=== PATIENT | female | born 1990 | race American Indian/Alaskan Native ===

== ENCOUNTER 2017-07-12 01:43 | Emergency (ER) | payer OTHER ==
[2017-07-12 02:43] LABS: Bilirubin,Urine NEG (Negative); Blood,Urine NEG (Negative); Color,Urine Yellow (Yellow); Mucus,Urine FEW /HPF; Urobilinogen,Urine < 2.0 mg/dL (<2.0)
[2017-07-12 02:51] LABS: HCG Qualitative,Urine Negative (Negative)
[2017-07-12] MEDS ORDERED: TYLENOL PO ONE (02:59)
[2017-07-12] MEDS ORDERED: TORADOL ONE (03:21)
[2017-07-12] MEDS ORDERED: ZOFRAN ONE (03:21)
[2017-07-12] MEDS ORDERED: TORADOL IV ONE (03:25)
[2017-07-12] MEDS ORDERED: ZOFRAN IV ONE (03:25)
[2017-07-12] MEDS ORDERED: MORPHINE ONE (03:56)
[2017-07-12] MEDS ORDERED: MORPHINE IV ONE (03:57)
[2017-07-12 04:02] LABS: Hematocrit 38.3 % (30.3-42.9); Hemoglobin 12.7 gm/dl (10.1-14.3); Mean Corpuscular HGB Conc 33 % (30-34); Mean Corpuscular Hemoglobin 34 pg (28-32); Mean Corpuscular Volume 103 fl (79-97); Platelet Count 186 K/mm3 (140-440); Red Blood Count 3.71 M/mm3 (3.65-5.03); Red Cell Distribution Width 14.1 % (13.2-15.2)
[2017-07-12 04:19] LABS: Alanine Aminotransferase 11 units/L (7-56); Albumin 4.7 g/dL (3.9-5); BUN/Creatinine Ratio 11; Blood Urea Nitrogen 9 mg/dL (7-17); Calcium 9.2 mg/dL (8.4-10.2); Hemolysis Index 33
[2017-07-12] MEDS ORDERED: NACL 0.9% 1000 ML 1,000 ML IV ONE (05:14)
[2017-07-12] MEDS ORDERED: REGLAN IV ONE (05:14)
[2017-07-12] MEDS ORDERED: PERCOCET 5/325 PO ONE (05:14)
[2017-07-12] MEDS ORDERED: NACL 0.9% 1000 ML 1,000 ML ONE (05:15)
[2017-07-12] MEDS ORDERED: REGLAN ONE (05:15)
[2017-07-12] MEDS ORDERED: PERCOCET 5/325 ONE (05:15)
--- NOTE | 2017-07-12 05:18 | Emergency Department Report ---
ED Abdominal Pain HPI - General Chief Complaint: Abdominal Pain Stated Complaint: ABDOMINAL PAIN Time Seen by Provider: 07/12/17 04:17 Source: patient, family, EMS Mode of arrival: Wheelchair Limitations: No Limitations - History of Present Illness Initial Comments: This is a 26-year-old patient presents to emergency room with her family member she reports left flank pain started yesterday. Reports some nausea and vomiting but now with nausea. She says she feels like she is starting to have a urinary tract infection she's having some burning with urination not as bad as previous that she says that she feels that she started to have UTI. It was noted in triage and I discussed the patient denies any urinary burning or difficulty urinating but she says she started to have that. She said her symptoms feel similar to previous kidney stone. Denies any blood in her urine. Reported left lower pelvic pain. Pain is 9 out of 10 crampy and molded from back to her left lower pelvic area. She says she took [id number] pain medication but doesn't help. Denies any fever or chills. Pain is worse with movement better rest. She has a primary care doctor who is Dr. Che but does not have a urologist. She has a history of kidney stones and a surgical history of spinal fusion. MD Complaint: abdominal pain, flank pain, other (nausea) Onset/Timin -: days(s) Location: L flank Radiation: LLQ Migration to: no migration Severity: severe Severity scale (0 -10): 9 Quality: cramping Consistency: constant Improves With: nothing Worsens With: movement Context: other (patient suspect that she has kidney stones and a urinary tract infection) Associated Symptoms: nausea, vomiting. denies: diarrhea, fever, dysuria, hematemesis, hematochezia, melena, hematuria, anorexia, syncope Treatments Prior to Arrival: other ([id number] pain medication) - Related Data LMP (females 10-50): unknown Previous Rx's Medication Instructions Recorded Last Taken Type Acetaminophen/Codeine [Tylenol 1 tab PO Q6H PRN #12 tab 07/12/17 Unknown Rx /Codeine # 3 tab] Cephalexin [Keflex] 500 mg PO Q12HR 7 Days #21 cap 07/12/17 Unknown Rx Fluconazole [Diflucan] 150 mg PO ONCE PRN #1 tablet 07/12/17 Unknown Rx Ibuprofen [Motrin] 600 mg PO Q8H PRN #15 tablet 07/12/17 Unknown Rx Ondansetron [Zofran Odt] 4 mg PO Q8H PRN #12 tab.rapdis 07/12/17 Unknown Rx Allergies Allergy/AdvReac Type Severity Reaction Status Date / Time No Known Allergies Allergy Verified 07/12/17 01:53 ED Review of Systems ROS: Stated complaint: ABDOMINAL PAIN Other details as noted in HPI Constitutional: denies: chills, fever ENT: denies: ear pain, throat pain, congestion Respiratory: denies: cough, shortness of breath, SOB at rest, stridor, wheezing Cardiovascular: denies: chest pain, palpitations, edema, syncope Gastrointestinal: abdominal pain, nausea, vomiting. denies: diarrhea, constipation, hematemesis, melena, hematochezia Genitourinary: dysuria. denies: urgency, frequency, hematuria, discharge, abnormal menses Musculoskeletal: denies: back pain, joint swelling, arthralgia Skin: denies: rash, lesions Neurological: denies: headache, weakness, paresthesias, abnormal gait, vertigo ED Past Medical Hx - Past Medical History Previous Medical History?: Yes Hx Kidney Stones: Yes - Surgical History Past Surgical History?: Yes Additional Surgical History: spinal fusion - Family History Family history: hypertension - Social History Smoking Status: Never Smoker Substance Use Type: Alcohol (3 times a month) - Medications Home Medications: Home Medications Medication Instructions Recorded Confirmed Last Taken Type Acetaminophen/Codeine [Tylenol 1 tab PO Q6H PRN #12 tab 07/12/17 Unknown Rx /Codeine # 3 tab] Cephalexin [Keflex] 500 mg PO Q12HR 7 Days #21 cap 07/12/17 Unknown Rx Fluconazole [Diflucan] 150 mg PO ONCE PRN #1 tablet 07/12/17 Unknown Rx Ibuprofen [Motrin] 600 mg PO Q8H PRN #15 tablet 07/12/17 Unknown Rx Ondansetron [Zofran Odt] 4 mg PO Q8H PRN #12 tab.rapdis 07/12/17 Unknown Rx ED Physical Exam - General Limitations: No Limitations General appearance: alert, in no apparent distress - Head Head exam: Present: atraumatic, normocephalic, normal inspection - Eye Eye exam: Present: normal appearance, PERRL, EOMI Pupils: Present: normal accommodation - ENT ENT exam: Present: normal exam, normal orophraynx, mucous membranes moist - Neck Neck exam: Present: normal inspection, full ROM, other (no C-spine tenderness). Absent: tenderness, lymphadenopathy - Respiratory Respiratory exam: Present: normal lung sounds bilaterally. Absent: respiratory distress, chest wall tenderness, accessory muscle use - Cardiovascular Cardiovascular Exam: Present: regular rate, normal rhythm, normal heart sounds. Absent: systolic murmur, diastolic murmur - GI/Abdominal GI/Abdominal exam: Present: soft, tenderness (left lower quadrant pelvic area), normal bowel sounds. Absent: distended, guarding, rebound, rigid, organomegaly , mass, bruit, pulsatile mass, hernia - Extremities Exam Extremities exam: Present: normal inspection, full ROM, normal capillary refill , other (no clubbing, cyanosis or edema. +2 pulses to all extremities and no neurovascular compromise). Absent: tenderness, pedal edema, joint swelling, calf tenderness - Back Exam Back exam: Present: normal inspection, full ROM, tenderness, CVA tenderness (L) , other (ambulates without any difficulties). Absent: CVA tenderness (R), muscle spasm, paraspinal tenderness, vertebral tenderness, rash noted - Neurological Exam Neurological exam: Present: alert, oriented X3, normal gait - Psychiatric Psychiatric exam: Present: normal affect, normal mood - Skin Skin exam: Present: warm, dry, intact, normal color. Absent: rash ED Course Vital Signs 07/12/17 07/12/17 07/12/17 01:49 06:14 06:57 Temperature 98.5 F Pulse Rate 95 H 85 Respiratory 18 20 20 Rate Blood Pressure 127/76 Blood Pressure 120/70 [Left] O2 Sat by Pulse 98 99 Oximetry Vital Signs 07/12/17 07/12/17 07/12/17 01:49 06:14 06:57 Temperature 98.5 F Pulse Rate 95 H 85 Respiratory 18 20 20 Rate Blood Pressure 127/76 Blood Pressure 120/70 [Left] O2 Sat by Pulse 98 99 Oximetry - Reevaluation(s) Reevaluation #1: 07/12/17 04:40 Patient given Toradol 30 mg IV, Zofran 4 mg IV and Tylenol 650 mg by mouth in emergency room for pain and nausea with minimal relief. Reevaluation #2: 07/12/17 05:05 She was relief of nausea but reported that she is still having pain so she was given morphine 4 mg IV which relieved her pain. Reevaluation #3: 07/12/17 05:55 Patient with left stone in her ureter at 3 mm and she is reporting that her pain is coming back to her left flank and lower abdomen so she was given Percocet 5/325 2 tablets and 1 L of normal saline. She was by mouth challenged and tolerated 2 cups of cranberry juice without any difficulties. Patient is feeling better and ready to be discharged. Abdomen is nontender to palpate at present and CVA tenderness as decreased. ED Medical Decision Making - Lab Data Result diagrams: 07/12/17 03:53 07/12/17 03:53 Lab Results 07/12/17 07/12/17 07/12/17 Range/Units 02:25 03:53 03:53 WBC 10.6 (4.5-11.0) K/mm3 RBC 3.71 (3.65-5.03) M/mm3 Hgb 12.7 (10.1-14.3) gm/dl Hct 38.3 (30.3-42.9) % MCV 103 H (79-97) fl MCH 34 H (28-32) pg MCHC 33 (30-34) % RDW 14.1 (13.2-15.2) % Plt Count 186 (140-440) K/mm3 Add Manual Diff Complete Total Counted 100 Seg Neutrophils % [employer] Technician Seg Neuts % (Manual) 93.0 H (40.0-70.0) % Band Neutrophils % 0 % Lymphocytes % (Manual) 6.0 L (13.4-35.0) % Reactive Lymphs % (Man) 0 % Monocytes % (Manual) 1.0 (0.0-7.3) % Eosinophils % (Manual) 0 (0.0-4.3) % Basophils % (Manual) 0 (0.0-1.8) % Metamyelocytes % 0 % Myelocytes % 0 % Promyelocytes % 0 % Blast Cells % 0 % Nucleated RBC % Not Reportable Seg Neutrophils # Man 9.9 H (1.8-7.7) K/mm3 Band Neutrophils # 0.0 K/mm3 Lymphocytes # (Manual) 0.6 L (1.2-5.4) K/mm3 Abs React Lymphs (Man) 0.0 K/mm3 Monocytes # (Manual) 0.1 (0.0-0.8) K/mm3 Eosinophils # (Manual) 0.0 (0.0-0.4) K/mm3 Basophils # (Manual) 0.0 (0.0-0.1) K/mm3 Metamyelocytes # 0.0 K/mm3 Myelocytes # 0.0 K/mm3 Promyelocytes # 0.0 K/mm3 Blast Cells # 0.0 K/mm3 WBC Morphology Not Reportable Hypersegmented Neuts Not Reportable Hyposegmented Neuts Not Reportable Hypogranular Neuts Not Reportable Smudge Cells Not Reportable Toxic Granulation Not Reportable Toxic Vacuolation Not Reportable Dohle Bodies Not Reportable Pelger-Huet Anomaly Not Reportable Mercy Rods Not Reportable Platelet Estimate Consistent w auto Clumped Platelets Not Reportable Plt Clumps, EDTA Not Reportable Large Platelets Not Reportable Giant Platelets Not Reportable Platelet Satelliting Not Reportable Plt Morphology Comment Not Reportable RBC Morphology Not Reportable Dimorphic RBCs Not Reportable Polychromasia Not Reportable Hypochromasia Not Reportable Poikilocytosis Not Reportable Anisocytosis Not Reportable Microcytosis Not Reportable Macrocytosis Not Reportable Spherocytes Not Reportable Pappenheimer Bodies Not Reportable Sickle Cells Not Reportable Target Cells Not Reportable Tear Drop Cells Not Reportable Ovalocytes Not Reportable Helmet Cells Not Reportable Ramirez-[place] Bodies Not Reportable [place] Rings Not Reportable Lopez Cells Not Reportable Bite Cells Not Reportable Crenated Cell Not Reportable Elliptocytes Not Reportable Acanthocytes (Spur) Not Reportable Rouleaux Not Reportable Hemoglobin C Crystals Not Reportable Schistocytes Not Reportable Malaria parasites Not Reportable Ion Bodies Not Reportable Hem Pathologist Commnt No Sodium 139 (137-145) mmol/L Potassium 4.3 (3.6-5.0) mmol/L Chloride 104.1 (98-107) mmol/L Carbon Dioxide 23 (22-30) mmol/L Anion Gap 16 mmol/L BUN 9 (7-17) mg/dL Creatinine 0.8 (0.7-1.2) mg/dL Estimated GFR > 60 ml/min BUN/Creatinine Ratio 11 % Glucose 114 H (65-100) mg/dL Calcium 9.2 (8.4-10.2) mg/dL Total Bilirubin 0.50 (0.1-1.2) mg/dL AST 21 (5-40) units/L ALT 11 (7-56) units/L Alkaline Phosphatase 62 (35-129) units/L Total Protein 7.8 (6.3-8.2) g/dL Albumin 4.7 (3.9-5) g/dL Albumin/Globulin Ratio 1.5 % Urine Color Yellow (Yellow) Urine Turbidity Clear (Clear) Urine pH 9.0 H (5.0-7.0) Ur Specific [place] 1.024 (1.003-1.030) Urine Protein 100 mg/dl (Negative) mg/dL Urine Glucose (UA) Neg (Negative) mg/dL Urine Ketones Neg (Negative) mg/dL Urine Blood Neg (Negative) Urine Nitrite Neg (Negative) Urine Bilirubin Neg (Negative) Urine Urobilinogen < 2.0 (<2.0) mg/dL Ur Leukocyte Esterase Tr (Negative) Urine WBC (Auto) 3.0 (0.0-6.0) /HPF Urine RBC (Auto) 20.0 (0.0-6.0) /HPF U Epithel Cells (Auto) 20.0 H (0-13.0) /HPF Urine Mucus Few /HPF Urine HCG, Qual Negative (Negative) No need for urine culture as patient urine is contaminated she does have trace leukocyte Estrace negative bacteria and she is having urinary burning and therefore I'll treat her based on her symptoms - Radiology Data Radiology results: report reviewed CT scan of the abdomen and pelvis without contrast reveals right kidney and ureter are unremarkable. There is mild left hydronephrosis and nitroglycerin ureter. History millimeters stone in the distal left ureter. There is no bowel obstruction, colitis or enteritis and the appendix is normal. Uterus is unremarkable. There is 4 cm cyst on the right ovary which patient says it's been there. There are is a small amount of free fluid which is nonspecific. There is no free air. There is no abscess or acute adenopathy. There is hardware transfixed in the lumbar spine and thoracic spine which she's had in the past without any problems. Discs no acute bony abnormality - Medical Decision Making This is a 26-year-old female here with her family member who reports that she is having left flank pain does radiate into into her left lower quadrant pelvic area and also with nausea and vomiting. She has a history of kidney stone with similar symptoms. She is also reporting that she started to have some burning on urination which she did not report in triage area. Patient was seen and examined by myself and she is now stable after pain medication and nausea medication. Patient had lab work done to include CBC with very minor abnormality, test negative, CMP very minor abnormality , urinalysis with positive protein, trace leukocytes and contaminated. Patient is completely urinary burning so will treat as UTI and will not send urine culture as its contaminated. She has no bacteria in her urine. She also has no blood in her urine. CT scan done and dictated by radiologist's and report reviewed by myself and shows patient with normal right kidney and ureter. There is left hydronephrosis which is mild and hydroureter which is mild. She is a 3 mm stone to the distal left ureter. She also has a cyst on her right ovary which measures 4 cm and she reports that that was already there. Please refer to laboratory section for details on lab and radiology report for details on CT scan. Laboratory findings and CT scan findings and discussed the patient and she voiced understanding of results. 1: abdominal pain- resolved with Tylenol 650 mg by mouth, Toradol 30 mg IV, morphine 4 mg IV and finally Percocet 5/325 2 tablets by mouth 2: nausea and vomiting- resolved with Zofran 4 mg IV and Reglan 10 mg IV. She was also given normal saline 1 L and emergency room and she is also tolerating by mouth challenge well and drank 3 cups of cranberry juice without any nausea or vomiting. We'll discharge home on Zofran 3: Right Ovarian cyst per CT scan report refer to [facility] RE[facility] and patient is already aware of ovarian cysts. She is not having any pain to right pelvic area. 4: Dysuria with trace leukocyte Estrace: although contaminated will place on short dose of Keflex upon d/c . Urine culture will not be sent to contamination To repeat UA OP in 1 week with her primary care physician Prescription given for Tylenol No. 3, motrin, Zofran and Keflex. He should also requested Diflucan on tablet for yeast prophylaxis and she was given a prescription for Diflucan 150 mg by mouth 1 as needed Patient educated on medications, Multiple diagnosis, followup visitis, lincrease fluid intake and if her symptoms returns or worsens to return to ED otherwise F/U with OBGYN , urologist and PCP as discussed. She voiced understanding. She is stable and VSS, afeb. D/c home with her family member. - Differential Diagnosis renal calculus, UTI, pyelonephritis, appendicitis, colitis, enteritis Critical care attestation.: If time is entered above; I have spent that time in minutes in the direct care of this critically ill patient, excluding procedure time. ED Disposition Clinical Impression: Renal colic on left side, Ureteral calculus, left, Right ovarian cyst Abdominal pain Qualifiers: Abdominal location: left lower quadrant Qualified Code(s): R10.32 - Left lower quadrant pain Nausea & vomiting Qualifiers: Vomiting type: unspecified Vomiting Intractability: non-intractable Qualified Code(s): R11.2 - Nausea with vomiting, unspecified Disposition: TO HOME OR SELFCARE Is pt being admited?: No Does the pt Need Aspirin: No Condition: Stable Instructions: Kidney Stones (ED), Urinary Tract Infection in Women (ED), Renal Colic (ED), Acute Nausea and Vomiting (ED), How to Strain Your Urine (ED), Dysuria (ED), Abdominal Pain (ED), Flank Pain (ED), Hydronephrosis (ED) Additional Instructions: Please increase fluid intake to at least 2-3 L of water and or cranberry juice over the next 24 hours to help kidney stone to be passed If ear pain worsens, increasing nausea vomiting, bloody urine, fever and/or chills, please return to the emergency room otherwise follow-up with your primary care and urologist as instructed Take antibiotic as prescribed Tylenol 3 for moderate to severe pain and Motrin for mild pain. Take Zofran for nausea and/or vomiting Prescriptions: Acetaminophen/Codeine [Tylenol /Codeine # 3 tab] 1 tab PO Q6H PRN #12 tab PRN Reason: moderate to severe pain Cephalexin [Keflex] 500 mg PO Q12HR 7 Days #21 cap Fluconazole [Diflucan] 150 mg PO ONCE PRN #1 tablet PRN Reason: yeast prophylaxis Ibuprofen [Motrin] 600 mg PO Q8H PRN #15 tablet PRN Reason: Mild Pain Unrelieved By Apap Ondansetron [Zofran Odt] 4 mg PO Q8H PRN #12 tab.rapdis PRN Reason: nausea and vomiting Referrals: PRIMARY CARE, [Primary Care Provider] - 07/13/17 [facility] [Provider Group] - 07/13/17 [facility] [Provider Group] - 3-5 Days Forms: Accompanied Note, Work/School Release Form(ED)
[2017-07-12 05:58] LABS: Basophils % (Manual) 0 % (0.0-1.8); Eosinophils % (Manual) 0 % (0.0-4.3); Total Cells Counted 100
[2017-07-12 06:06] LABS: Platelet Estimate Consistent w Auto
[2017-07-12 06:58] VITALS: BP 120/70
--- NOTE | 2017-07-12 14:03 | Cat Scan Report ---
FINAL REPORT PROCEDURE: CT ABDOMEN PELVIS WO CON TECHNIQUE: Computerized axial tomography of the abdomen and pelvis was performed without intravenous contrast. This study is performed without intravascular contrast material and its sensitivity for abdominal and pelvic pathology, including neoplasms, inflammation, abscess, free fluid, thrombosis, arterial dissection and infarction, is reduced compared with a contrast enhanced study. HISTORY: left flank pain COMPARISON: No prior studies are available for comparison. FINDINGS: Visualized lower thorax: No significant abnormality. Liver: Normal size and attenuation. Spleen: Normal size and attenuation. Gallbladder and biliary system: Normal. Pancreas: Normal. Adrenals: Normal. Kidneys: The right kidney and ureter are unremarkable. There is mild left hydronephrosis and hydroureter. There is a 3 millimeter stone the distal left ureter. GI tract: There is no bowel obstruction, colitis or enteritis. The appendix is normal.. Lymph nodes and mesentery: Normal. Vasculature: Normal. Bladder: Normal. Reproductive organs: Uterus is unremarkable. There is a 4 centimeters cyst in the right ovary. Peritoneum: There is a small amount of free pelvic fluid which is nonspecific. There is no free air. There is no abscess or adenopathy.. Musculoskeletal structures: There is hardware transfixing the lumbar spine and thoracic spine. There are no acute bony abnormalities.. Other: None. IMPRESSION: The right kidney and ureter are unremarkable. There is mild left hydronephrosis and hydroureter. There is a 3 millimeter stone the distal left ureter. There is no bowel obstruction, colitis or enteritis. The appendix is normal.. Uterus is unremarkable. There is a 4 centimeters cyst in the right ovary. There is a small amount of free pelvic fluid which is nonspecific. There is no free air. There is no abscess or adenopathy.. There is hardware transfixing the lumbar spine and thoracic spine. There are no acute bony abnormalities.. .
== END 2017-07-12 07:10 | disposition home or self-care (01) ==
LOC: ED 01:43
DX: N20.1 Calculus of ureter (principal); N23 Unspecified renal colic; N83.201 Unspecified ovarian cyst, right side; R11.2 Nausea with vomiting, unspecified; R10.32 Left lower quadrant pain
CPT/HCPCS: 36415; 74176; 80053; 81001; 81025; 85007; 85025; 87086; 96361; 96374; 96375; 99284; J1885; J2270; J2405; J2765; J7030